=== PATIENT | male | born 1955 | race Caucasian/White ===

== ENCOUNTER → 2017-01-31 | Outpatient (CLI) | payer OTHER ==
[~2017-01-31] MED LIST: ATEN-173 PO; CHOL100010 PO; FEXO1TAB49 PO; FLUT0.15; HYDR25TA4 PO; LISI-729 PO; LOSA1TAB38 PO; NAPR1TAB9 PO; SNG10 PO; TAMS0.4C38 PO
[2017-01-31 17:13] LABS: BASO % 0.4 %; BASO ABS # 0.06 K/uL (0-0.2); COMPLETE YES; EOS % 2.7 %; HEMATOCRIT 29.3 % (42-52); IG% 0.7 %; LYMPH % 26.4 %; LYMPH ABS # 3.57 K/uL (1.2-3.4); MEAN CELL VOLUME 86.7 fL (80-100); MEAN CORPUSCULAR HEMOGLOBIN 28.4 pg (25-34); MEAN CORPUSCULAR HGB CONC 32.8 g/dl (32-36); MEAN PLATELET VOLUME 11.9 fL (7.4-10.4); MONO % 15.2 %; NEUT % 54.6 %; PLATELET COUNT 267 K/uL (130-400); RED BLOOD COUNT 3.38 M/uL (4.7-6.1)
[2017-01-31 17:45] LABS: BLOOD UREA NITROGEN 15 mg/dl (7-18); BUN/CREATININE RATIO 17.8 (10-20); C-REACTIVE PROTEIN 1.07 mg/dl (0-0.29); CALCIUM 8.5 mg/dl (8.5-10.1); CARBON DIOXIDE 26 mmol/L (21-32); CHLORIDE 108 mmol/L (98-107); CREATININE 0.85 mg/dl (0.60-1.40); GLUCOSE 100 mg/dl (70-99); POTASSIUM 4.1 mmol/L (3.5-5.1); SODIUM 141 mmol/L (136-145)
--- NOTE | 2017-03-03 12:27 | CODING QUERY NO DIAGNOSIS ---
Valid Physician Order Needed A valid physician order must be submitted in order to properly bill for the service(s) provided, including date of service(s), valid diagnosis, and physician signature. If these tests are done on a recurring basis the original physican order must be submitted in order to code and bill for the service(s) provided. Please fax us the original, signed physician order so that we may expedite billing to [phone] DOS 01/31/17 * C-REACTIVE PROTEIN, BASIC METABOLIC PROILE, CBC, PLATELET COUNT, SED RATE. (there is no valid signature on the order - the provider is listed as Noemi SELBY. Please provide contact information for this provider if you have as well if available) Thank you Julissa Doyle [facility] Information Management
== END | disposition home or self-care (01) ==
LOC: C.LABSPEC 16:48
PROVIDERS: ATTEND Nurse Practitioner
DX: M86.9 Osteomyelitis, unspecified (principal); S82.8 Other fractures of lower leg; X58.XXXD Exposure to other specified factors, subsequent encounter; Z79.2 Long term (current) use of antibiotics; I10 Essential (primary) hypertension; A69.20 Lyme disease, unspecified; E66.9 Obesity, unspecified; Z48.89 Encounter for other specified surgical aftercare; Z45.2 Encounter for adjustment and management of vascular access device

== ENCOUNTER → 2017-02-07 | Outpatient (CLI) | payer OTHER ==
[2017-02-07 19:27] LABS: HEMATOCRIT 32.2 % (42-52); MEAN CORPUSCULAR HEMOGLOBIN 27.4 pg (25-34); MEAN CORPUSCULAR HGB CONC 32.3 g/dl (32-36); MEAN PLATELET VOLUME 12.3 fL (7.4-10.4); PLATELET COUNT 275 K/uL (130-400); RED BLOOD COUNT 3.79 M/uL (4.7-6.1); WHITE BLOOD COUNT 9.92 K/uL (4.8-10.8)
[2017-02-07 19:34] LABS: BLOOD UREA NITROGEN 18 mg/dl (7-18); BUN/CREATININE RATIO 21.7 (10-20); C-REACTIVE PROTEIN 0.53 mg/dl (0-0.29); CALCIUM 8.8 mg/dl (8.5-10.1); CARBON DIOXIDE 25 mmol/L (21-32); CHLORIDE 107 mmol/L (98-107); CREATININE 0.83 mg/dl (0.60-1.40); GLUCOSE 104 mg/dl (70-99); POTASSIUM 3.9 mmol/L (3.5-5.1); SODIUM 139 mmol/L (136-145)
[2017-02-07 20:36] LABS: BASO ABS # 0.18 K/uL (0-0.2); BASOPHIL % 1.8 % (0-2); COMPLETE YES; EOSINOPHIL % 1.8 %; LYMPH ABS # 1.49 K/uL (1.2-3.4); NEUTROPHILS % 64.6 %; VARIANT LYM ABS # 1.14 K/uL; VARIANT LYMPHOCYTE % 11.5 %
--- NOTE | 2017-02-09 10:46 | CODING QUERY NO DIAGNOSIS ---
Valid Physician Order Needed A valid physician order must be submitted in order to properly bill for the service(s) provided, including date of service(s), valid diagnosis, and physician signature. If these tests are done on a recurring basis the original physican order must be submitted in order to code and bill for the service(s) provided. Please fax us the original, signed physician order so that we may expedite billing to [phone] DOS 02/07/17 * CRP, PRP, CBC, ESR ORDERED BY HASEEB FISH PA-C Thank you Alexus [facility] Information Management
== END | disposition home or self-care (01) ==
LOC: C.LABSPEC 16:56
PROVIDERS: ATTEND Orthopaedic Surgery
DX: M86.9 Osteomyelitis, unspecified (principal)

== ENCOUNTER → 2017-02-14 | Outpatient (CLI) | payer OTHER ==
[2017-02-14 16:49] LABS: BASO % 0.3 %; BASO ABS # 0.03 K/uL (0-0.2); COMPLETE YES; IG% 0.2 %; LYMPH % 29.6 %; MEAN CELL VOLUME 85.4 fL (80-100); MEAN CORPUSCULAR HEMOGLOBIN 26.6 pg (25-34); MEAN CORPUSCULAR HGB CONC 31.1 g/dl (32-36); MEAN PLATELET VOLUME 12.3 fL (7.4-10.4); MONO % 11.4 %; NEUT % 53.5 %; PLATELET COUNT 228 K/uL (130-400); WHITE BLOOD COUNT 9.11 K/uL (4.8-10.8)
[2017-02-14 16:59] LABS: BLOOD UREA NITROGEN 19 mg/dl (7-18); BUN/CREATININE RATIO 17.4 (10-20); C-REACTIVE PROTEIN 0.34 mg/dl (0-0.29); CALCIUM 8.8 mg/dl (8.5-10.1); CARBON DIOXIDE 28 mmol/L (21-32); CHLORIDE 104 mmol/L (98-107); GLUCOSE 101 mg/dl (70-99); POTASSIUM 3.9 mmol/L (3.5-5.1); SODIUM 139 mmol/L (136-145)
--- NOTE | 2017-02-17 05:59 | CODING QUERY NO DIAGNOSIS ---
Valid Physician Order Needed A valid physician order must be submitted in order to properly bill for the service(s) provided, including date of service(s), valid diagnosis, and physician signature. If these tests are done on a recurring basis the original physician order must be submitted in order to code and bill for the service(s) provided. Please fax us the original, signed physician order so that we may expedite billing to [phone] DOS 02/14 * CRP, PRP, CBC, ESR Thank you [facility] Information Management
== END | disposition home or self-care (01) ==
LOC: C.LABSPEC 16:30
PROVIDERS: ATTEND Physician Assistant Medical
DX: M86.9 Osteomyelitis, unspecified (principal); Z51.81 Encounter for therapeutic drug level monitoring; Z79.2 Long term (current) use of antibiotics; I10 Essential (primary) hypertension; A69.20 Lyme disease, unspecified; S82.8 Other fractures of lower leg; X58.XXXD Exposure to other specified factors, subsequent encounter

== ENCOUNTER → 2017-02-21 | Outpatient (CLI) | payer OTHER ==
[2017-02-21 18:07] LABS: BASO % 0.3 %; BASO ABS # 0.03 K/uL (0-0.2); COMPLETE YES; EOS % 3.7 %; HEMATOCRIT 28.7 % (42-52); IG% 0.3 %; LYMPH ABS # 1.82 K/uL (1.2-3.4); MEAN CELL VOLUME 84.7 fL (80-100); MEAN CORPUSCULAR HEMOGLOBIN 27.4 pg (25-34); MEAN CORPUSCULAR HGB CONC 32.4 g/dl (32-36); MEAN PLATELET VOLUME 12.3 fL (7.4-10.4); MONO % 11.6 %; NEUT % 64.1 %; PLATELET COUNT 212 K/uL (130-400); RED BLOOD COUNT 3.39 M/uL (4.7-6.1); WHITE BLOOD COUNT 9.12 K/uL (4.8-10.8)
[2017-02-21 18:14] LABS: BLOOD UREA NITROGEN 22 mg/dl (7-18); BUN/CREATININE RATIO 23.1 (10-20); C-REACTIVE PROTEIN 6.51 mg/dl (0-0.29); CALCIUM 8.8 mg/dl (8.5-10.1); CARBON DIOXIDE 28 mmol/L (21-32); CHLORIDE 106 mmol/L (98-107); CREATININE 0.97 mg/dl (0.60-1.40); GLUCOSE 127 mg/dl (70-99); POTASSIUM 3.9 mmol/L (3.5-5.1); SODIUM 141 mmol/L (136-145)
--- NOTE | 2017-02-22 14:02 | CODING QUERY NO DIAGNOSIS ---
Valid Physician Order Needed A valid physician order must be submitted in order to properly bill for the service(s) provided, including date of service(s), valid diagnosis, and physician signature. If these tests are done on a recurring basis the original physican order must be submitted in order to code and bill for the service(s) provided. Please fax us the original, signed physician order so that we may expedite billing to [phone] DOS 02/21/17 * CRP, PRP, CBC, ESR ORDERED BY SOLA EDWARD Thank you Alexus [facility] Information Management
== END | disposition home or self-care (01) ==
LOC: C.LABSPEC 16:40
PROVIDERS: ATTEND Nurse Practitioner
DX: M86.9 Osteomyelitis, unspecified (principal)

== ENCOUNTER → 2017-02-24 | Outpatient (CLI) | payer OTHER | END | disposition home or self-care (01) | LOC: C.LABSPEC 17:25 | PROVIDERS: ATTEND Internal Medicine Infectious Disease | DX: M86.9 Osteomyelitis, unspecified (principal) ==

== ENCOUNTER → 2017-02-28 | Outpatient (CLI) | payer OTHER ==
[2017-02-28 17:10] LABS: HEMATOCRIT 30.5 % (42-52); MEAN CELL VOLUME 82.7 fL (80-100); MEAN CORPUSCULAR HGB CONC 31.5 g/dl (32-36); MEAN PLATELET VOLUME 11.8 fL (7.4-10.4); PLATELET COUNT 311 K/uL (130-400); RED BLOOD COUNT 3.69 M/uL (4.7-6.1); WHITE BLOOD COUNT 13.32 K/uL (4.8-10.8)
[2017-02-28 17:41] LABS: BLOOD UREA NITROGEN 24 mg/dl (7-18); BUN/CREATININE RATIO 23.8 (10-20); C-REACTIVE PROTEIN 0.47 mg/dl (0-0.29); CALCIUM 8.7 mg/dl (8.5-10.1); CARBON DIOXIDE 27 mmol/L (21-32); CHLORIDE 106 mmol/L (98-107); GLUCOSE 88 mg/dl (70-99); POTASSIUM 3.7 mmol/L (3.5-5.1); SODIUM 140 mmol/L (136-145)
[2017-02-28 19:01] LABS: BASO % 0.2 %; BASO ABS # 0.03 K/uL (0-0.2); COMPLETE YES; ECHINOCYTES 1+; EOS % 2.4 %; IG% 0.5 %; LYMPH % 22.9 %; LYMPH ABS # 3.05 K/uL (1.2-3.4); MONO % 15.3 %; NEUT % 58.7 %; SMUDGE CELLS PRESENT
--- NOTE | 2017-03-01 11:17 | CODING QUERY NO DIAGNOSIS ---
Valid Physician Order Needed A valid physician order must be submitted in order to properly bill for the service(s) provided, including date of service(s), valid diagnosis, and physician signature. If these tests are done on a recurring basis the original physican order must be submitted in order to code and bill for the service(s) provided. Please fax us the original, signed physician order so that we may expedite billing to [phone] DOS 02/28/17 * C-REACTIVE PROTEIN * PARTIAL RENAL PROFILE * CBC W/ AUTO DIFF * ERYTHROCYTE SEDIMENTATION RATE Thank you Oneida [facility] Information Management
== END | disposition home or self-care (01) ==
LOC: C.LABSPEC 16:50
PROVIDERS: ATTEND Orthopaedic Surgery
DX: M86.9 Osteomyelitis, unspecified (principal)

== ENCOUNTER 2017-08-20 06:54 | Emergency (ER) | payer OTHER ==
[~2017-08-20] VITALS: Ht 167.6 cm; Wt 112.9 kg
[~2017-08-20 06:54] MED LIST changes: -ATEN-173 PO; -HYDR25TA4 PO; -LOSA1TAB38 PO; -TAMS0.4C38 PO
[2017-08-20 06:58] VITALS: TEMP 36.6; Ht 167.6 cm; Wt 112.9 kg
--- NOTE | 2017-08-20 07:04 | EMERGENCY ROOM VISIT NOTE ---
ED Visit Note First contact with patient: 07:01 Resident Physician Supervision Note: I was present with Dr. Galvez during the history and exam. I discussed the case with the resident and agree with the findings and plan as documented in the note. Documented By: Alan Clemens Problem List Medical Problems: (1) Asthma Status: Chronic (2) Bronchitis Status: Resolved (3) Pneumonia Status: Resolved Surgical Problems: (1) History of back surgery Status: Resolved Current/Historical Medications Scheduled Cholecalciferol (Vitamin D), 2,000 INTER.UNIT PO DAILY Fexofenadine Hcl (Sirisah Allergy), 1 TAB PO DAILY Fluticasone Propionate (Nasal) (Flonase Allergy Relief), SPRAYS NA DAILY Lisinopril (Zestril), 20 MG PO DAILY Montelukast (Singulair *), 10 MG PO DAILY Naproxen (Aleve), 220 MG PO DAILY Allergies Coded Allergies: Dust (Verified Allergy, Mild, rhinitis, 06/01/16) Molds & Smuts (Verified Allergy, Mild, rhinitis, 06/01/16) POLLEN (Verified Allergy, Mild, rhinitis, 06/01/16) Morphine (Unverified Adverse Reaction, Mild, "It doesn't work for me"., 11/05) Vital Signs Date Time Temp Pulse Resp B/P (MAP) Pulse Ox O2 Delivery O2 Flow Rate FiO2 08/20/17 06:58 36.6 103 17 172/91 95 Room Air Departure Information Referrals No Doctor, Assigned (PCP) Patient Instructions My [facility]
--- NOTE | 2017-08-20 07:07 | EMERGENCY ROOM VISIT NOTE ---
History First contact with patient: 07:12 Chief Complaint: ABDOMINAL PAIN Stated Complaint: SEVERE STOMACH PAINS- KIDNEY STONE? History of Present Illness The patient is a 62 year old male who presents to the Emergency Room with complaints of left flank pain which woke him out of sleep at approx 0230. The patient states that he was suddenly awakened from 6/10 sharp left flank pain. It did not radiate and no aggravating/ alleviating factors. He notes acid reflux was associated with this pain as well as nausea so he took Tums. The acid reflux resolved however the flank pain started to radiate into the lower abdomen and patient was concerned for a kidney stone as he has a history of them and decided to come to the ED for evaluation. He currently denies any chest pain, sob, hematuria, dysuria, change in bowel habits. He notes his nausea is ongoing. Review of Systems A 10 point review of systems was completed and was negative aside from above Past Medical/Surgical History Medical Problems: (1) Asthma (2) Bronchitis (3) Facial droop (4) Pneumonia (5) Tibia/fibula fracture Surgical Problems: (1) History of back surgery Family History FH: gallbladder disease FH: kidney disease Social History Smoking Status: Never Smoker Smokeless Tobacco Use: No Alcohol Use: occasionally Drug Use: none Marital Status: Housing Status: lives with significant other Occupation Status: employed Current/Historical Medications Scheduled Atenolol (Tenormin), 25 MG PO DAILY Cholecalciferol (Vitamin D), 2,000 INTER.UNIT PO DAILY Fluticasone Propionate (Nasal) (Flonase Allergy Relief), SPRAYS NA DAILY Hydrochlorothiazide (Hctz), 25 MG PO DAILY Losartan Potassium (Cozaar), 100 MG PO DAILY Tamsulosin Hcl (Flomax), 1 CAP PO HS Allergies Coded Allergies: Dust (Verified Allergy, Mild, rhinitis, 08/20/17) Molds & Smuts (Verified Allergy, Mild, rhinitis, 08/20/17) POLLEN (Verified Allergy, Mild, rhinitis, 08/20/17) Morphine (Unverified Adverse Reaction, Mild, "It doesn't work for me"., ) Physical Exam Vital Signs Date Time Temp Pulse Resp B/P (MAP) Pulse Ox O2 Delivery O2 Flow Rate FiO2 08/20/17 09:45 84 17 135/64 95 Room Air 08/20/17 07:45 99 17 171/93 94 Room Air 08/20/17 06:58 36.6 103 17 172/91 95 Room Air Physical Exam General: ambulatory, not in acute distress Skin: no rashes noted, no suspicious lesions, no areas of inflammations/ lacerations/ erythema noted CVS: S1/ S2 noted, RRR, no rubs/ murmurs noted, no cyanosis RVS: Clear throughout bilaterally, not in acute respiratory distress, no wheezing/ rales/ crackles noted ENT: no erythema/ injection/ ulcerations noted in the pharynx, no lymphadenopathy Neck: inspection WNL, full ROM of neck ABD: BSx4, no pain/ tenderness on palpation, no organomegaly, negative murphys, psoas, Rovsing, left CVA tenderness MSK: inspection of all limbs WNL except for a llizarov apparatus on the right LE , sensation intact in all limbs, no swelling/ pain on palpation of joints Lymph: No lymphadenopathy palpable Medical Decision & Procedures ER Provider Diagnostic Interpretation: ABD/PELVIS WITHOUT FOR STONE CLINICAL HISTORY: 62 years-old Male presenting with left flank pain, h/o kidney stone. TECHNIQUE: Multidetector CT of the abdomen and pelvis was performed without the use of intravenous contrast. IV contrast: None. A dose lowering technique was used consistent with the principles of ALARA (as low as reasonably achievable). COMPARISON: 09/29/2011. CT DOSE (mGy.cm): The estimated cumulative dose is 1793.21 mGy.cm. FINDINGS: [employer] topogram: Posterior lumbar fusion hardware. Lung bases: Minimal dependent changes likely atelectasis. Normal heart size. No pericardial or pleural effusion. Liver: Normal morphology. Density consistent with hepatic steatosis. Biliary: No gross biliary ductal dilatation allowing for noncontrast technique. Normal gallbladder. Pancreas: Moderate parenchymal atrophy. Spleen: Normal noncontrast appearance. Adrenal glands: Normal noncontrast appearance. Kidneys and ureters: Left perinephric fat stranding more than on the right. Mild left pelvocaliectasis. Nonobstructing 4 mm calculus at the lower pole of the left kidney. Punctate nonobstructing calculus at the upper pole of the left kidney (series 2 image 62). Additional probable punctate calculus in the interpolar region of the left kidney no right renal calculi. Obstructing 2 mm calculus at the left ureterovesical junction. The left ureter is mildly dilated. This is not in the midline, suggestive of retention within the ureter rather than a bladder calculus. Right ureter normal. Bladder: Incompletely evaluated secondary to underdistention. Pelvic organs: Prostate and seminal vesicles normal. Bowel: Diverticulosis of the descending and sigmoid colon. Normal appendix. No bowel obstruction. Peritoneal cavity: No free fluid or intraperitoneal gas. Vasculature: Atherosclerosis of the normal caliber abdominal aorta. Lymph nodes: No gross lymphadenopathy allowing for noncontrast technique. Few prominent bilateral inguinal lymph nodes, right greater than left, possibly reactive. Abdominal wall: Small fat-containing umbilical hernia. Postsurgical changes of vasectomy suspected. Musculoskeletal: Posterior lumbar fusion of L4-5 with associated laminectomy defects. Degenerative changes of the spine. IMPRESSION: 1. Obstructing 2 mm calculus in the left uterovesical junction. Additional nonobstructing left renal calculi. Mild left hydroureteronephrosis. 2. Prominent bilateral inguinal lymph nodes, right greater than left, which are not pathologically enlarged and likely reactive. CHEST ONE VIEW PORTABLE CLINICAL HISTORY: 62 years-old Male presenting with chest pain. TECHNIQUE: Portable upright AP view of the chest was obtained. COMPARISON: 06/01/2016. FINDINGS: Cardiomediastinal silhouette normal. Lungs and pleural spaces clear. Osseous structures normal. Upper abdomen normal. IMPRESSION: 1. No acute cardiopulmonary disease. Laboratory Results 08/20/17 07:25 Red Blood Count 5.29, Mean Corpuscular Volume 78.1, Mean Corpuscular Hemoglobin 25.9, Mean Corpuscular Hemoglobin Concent 33.2, Mean Platelet Volume 12.1, Neutrophils (%) (Auto) 77.2, Lymphocytes (%) (Auto) 15.7, Monocytes (%) (Auto) 6.4, Eosinophils (%) (Auto) 0.1, Basophils (%) (Auto) 0.2, Neutrophils # (Auto) 12.93, Lymphocytes # (Auto) 2.63, Monocytes # (Auto) 1.08, Eosinophils # (Auto) 0.01, Basophils # (Auto) 0.03 08/20/17 07:25 Test 08/20/17 07:03 08/20/17 07:05 08/20/17 07:25 Creatine Kinase MB Ratio (0-3.0) Urine Color YELLOW Urine Appearance CLEAR (CLEAR) Urine pH 5.0 (4.5-7.5) Urine Specific Wayne 1.034 (1.000-1.030) Urine Protein NEG (NEG) Urine Glucose (UA) NEG (NEG) Urine Ketones TRACE (NEG) Urine Occult Blood 2+ (NEG) Urine Nitrite NEG (NEG) Urine Bilirubin NEG (NEG) Urine Urobilinogen NEG (NEG) Urine Leukocyte Esterase NEG (NEG) Urine WBC (Auto) 1-5 /hpf (0-5) Urine RBC (Auto) 10-30 /hpf (0-4) Urine Hyaline Casts (Auto) 1-5 /lpf (0-5) Urine Epithelial Cells (Auto) 10-20 /lpf (0-5) Urine Bacteria (Auto) NEG (NEG) White Blood Count 16.75 K/uL (4.8-10.8) Red Blood Count 5.29 M/uL (4.7-6.1) Hemoglobin 13.7 g/dL (14.0-18.0) Hematocrit 41.3 % (42-52) Mean Corpuscular Volume 78.1 fL (80-100) Mean Corpuscular Hemoglobin 25.9 pg (25-34) Mean Corpuscular Hemoglobin Concent 33.2 g/dl (32-36) Platelet Count 237 K/uL (130-400) Mean Platelet Volume 12.1 fL (7.4-10.4) Neutrophils (%) (Auto) 77.2 % Lymphocytes (%) (Auto) 15.7 % Monocytes (%) (Auto) 6.4 % Eosinophils (%) (Auto) 0.1 % Basophils (%) (Auto) 0.2 % Neutrophils # (Auto) 12.93 K/uL (1.4-6.5) Lymphocytes # (Auto) 2.63 K/uL (1.2-3.4) Monocytes # (Auto) 1.08 K/uL (0.11-0.59) Eosinophils # (Auto) 0.01 K/uL (0-0.5) Basophils # (Auto) 0.03 K/uL (0-0.2) RDW Standard Deviation 49.5 fL (36.4-46.3) RDW Coefficient of Variation 17.3 % (11.5-14.5) Immature Granulocyte % (Auto) 0.4 % Immature Granulocyte # (Auto) 0.07 K/uL (0.00-0.02) Anion Gap 9.0 mmol/L (3-11) Est Creatinine Clear Calc Drug Dose 61.8 ml/min Estimated GFR () 57.8 Estimated GFR (Non- 49.9 BUN/Creatinine Ratio 15.9 (10-20) Calcium Level 10.0 mg/dl (8.5-10.1) Total Bilirubin 0.4 mg/dl (0.2-1) Aspartate Amino Transf (AST/SGOT) 19 U/L (15-37) Alanine Aminotransferase (ALT/SGPT) 33 U/L (12-78) Alkaline Phosphatase 101 U/L (45-117) Creatine Kinase MB 2.5 ng/ml (0.5-3.6) Troponin I < 0.015 ng/ml (0-0.045) Total Protein 7.8 gm/dl (6.4-8.2) Albumin 3.6 gm/dl (3.4-5.0) Globulin 4.2 gm/dl (2.5-4.0) Albumin/Globulin Ratio 0.9 (0.9-2) Lipase 73 U/L (73-393) Medications Administered Medications (Trade) Dose Ordered Sig/Jenn Route Start Time Stop Time Status Last Admin Dose Admin Hydromorphone HCl (Dilaudid Inj) 1 mg NOW STAT IV 08/20/17 07:31 08/20/17 07:32 DC 08/20/17 07:43 1 MG Ketorolac Tromethamine (Toradol Inj) 30 mg NOW STAT IV 08/20/17 07:31 08/20/17 07:32 DC 08/20/17 07:43 30 MG Ondansetron HCl (Zofran Inj) 4 mg NOW STAT IV 08/20/17 07:31 08/20/17 07:32 DC 08/20/17 07:42 4 MG Sodium Chloride 1,000 ml @ 999 mls/hr Q1H1M STAT IV 08/20/17 07:31 08/20/17 08:31 DC 08/20/17 07:42 999 MLS/HR Ceftriaxone Sodium (Rocephin Inj) 1 gm NOW STAT IV 08/20/17 08:07 08/20/17 08:08 DC 08/20/17 08:33 1 GM Tamsulosin HCl (Flomax Cap) 0.4 mg NOW ONCE PO 08/20/17 09:30 08/20/17 09:31 DC 08/20/17 09:56 0.4 MG ECG Indication: chest pain Rate (beats per minute): 100 Rhythm: normal sinus Findings: no acute ischemic change, no ectopy Change: no significant change ED Course 0715: patient was seen and evaluated by resident, work up was ordered 0740: Zofran 4 mg IV, toradol 30 mg IV, hydromorphone 1 mg IV, NSS 1 L @ 999/h 0800: Rocephin 1 mg IV 0845: Patient was reassessed and symptoms have improved with intervention, updated on results 0930: Discussed discharge with patient, patient agreeable Tamsulosin 0.4 mg now Medical Decision Differential diagnosis: Etiologies such as appendicitis, diverticulitis, nephrolithiasis, biliary pathology, UTI, pancreatitis, obstruction, mesenteric ischemia, aortic pathology , infections, inflammatory bowel disease, renal colic, as well as others were entertained. This is a 62 yo m with a history of nephrolithiasis presenting with left flank pain. His CBC revealed a BL anemia and a leukocytosis so the patient was started on Rocephin. He did have a recent lab test in mid june which revealed an elevated WBC as well and may be secondary to the llizarov frame. As patient was hemodynamically stable and UA was WNL aside from occult blood the patient was not continued on abx. The patient's CMP was unremarkable aside from JUAN which was most likely from the patient's nephrolithiasis causing hydronephrosis. Patient did receive a bolus of NSS. Ct revealed a 2 mm obstructing stone. As the size of the stone is 2 mm the patient was started on flomax with close follow up with urology. UA was unremarkable so antibiotics were not continued. We discussed discharge to the patient and he was agreeable. Impression Primary Impression: Nephrolithiasis Additional Impression: JUAN (acute kidney injury) Departure Information Dispostion Home / Self-Care Condition GOOD Prescriptions Tamsulosin Hcl (FLOMAX) 0.4 Mg Cap 1 CAP PO HS for 30 Days, #30 CAP 5 Refills Prov: Tamika Galvez MD 08/20/17 Referrals No Doctor, Assigned (PCP) Patient Instructions My [facility] Problem Qualifiers
[2017-08-20 07:20] LABS: URINE APPEARANCE CLEAR (CLEAR); URINE BILIRUBIN NEG (NEG); URINE COLOR YELLOW; URINE NITRITE NEG (NEG); URINE SPECIFIC GRAVITY 1.034 (1.000-1.030); UROBILINOGEN NEG (NEG); ZZUR CULT IF INDIC CLEAN CATCH NO
[2017-08-20 07:25] LABS: MANUAL MICROSCOPIC REQUIRED? NO; REVIEW REQ? NO
[2017-08-20] MEDS ORDERED: ONDANSETRON INJ 2 MG/ML 2 ML VIAL IV STA ×2 (07:31→07:40)
[2017-08-20] MEDS ORDERED: KETOROLAC TROMETHAMINE 30 MG/ML VIAL IV STA ×2 (07:31→07:40)
[2017-08-20] MEDS ORDERED: SODIUM CHLORIDE 0.9% 1000ML 1,000 ML IV STA (07:31)
[2017-08-20] MEDS ORDERED: HYDROmorphone INJ 1 MG/ML SYR IV STA (07:31)
[2017-08-20] MEDS ORDERED: HYDR25TA4 PO (07:40)
[2017-08-20] MEDS ORDERED: LOSA1TAB38 PO (07:40)
[2017-08-20] MEDS ORDERED: ATEN-173 PO (07:40)
[2017-08-20 07:44] LABS: BASO % 0.2 %; BASO ABS # 0.03 K/uL (0-0.2); COMPLETE YES; EOS % 0.1 %; HEMATOCRIT 41.3 % (42-52); IG% 0.4 %; LYMPH % 15.7 %; LYMPH ABS # 2.63 K/uL (1.2-3.4); MEAN CELL VOLUME 78.1 fL (80-100); MEAN CORPUSCULAR HEMOGLOBIN 25.9 pg (25-34); MEAN CORPUSCULAR HGB CONC 33.2 g/dl (32-36); MEAN PLATELET VOLUME 12.1 fL (7.4-10.4); MONO % 6.4 %; NEUT % 77.2 %; PLATELET COUNT 237 K/uL (130-400); RED BLOOD COUNT 5.29 M/uL (4.7-6.1); WHITE BLOOD COUNT 16.75 K/uL (4.8-10.8)
[2017-08-20 07:56] LABS: ALT/SGPT 33 U/L (12-78); BLOOD UREA NITROGEN 24 mg/dl (7-18); BUN/CREATININE RATIO 15.9 (10-20); CARBON DIOXIDE 24 mmol/L (21-32); CHLORIDE 107 mmol/L (98-107); GLUCOSE 145 mg/dl (70-99); SODIUM 140 mmol/L (136-145)
[2017-08-20 08:01] LABS: ALB/GLOB RATIO 0.9 (0.9-2); ALKALINE PHOSPHATASE 101 U/L (45-117); AST/SGOT 19 U/L (15-37)
[2017-08-20] MEDS ORDERED: CEFTRIAXONE SOD INJ 1 GM ADDVIAL IV STA (08:07)
--- NOTE | 2017-08-20 09:03 | DIAGNOSTIC IMAGING REPORT ---
CHEST ONE VIEW PORTABLE CLINICAL HISTORY: 62 years-old Male presenting with chest pain. TECHNIQUE: Portable upright AP view of the chest was obtained. COMPARISON: 06/01/2016. FINDINGS: Cardiomediastinal silhouette normal. Lungs and pleural spaces clear. Osseous structures normal. Upper abdomen normal. IMPRESSION: 1. No acute cardiopulmonary disease. Electronically signed by: Mike Kennedy M.D. 08/20/2017 9:02 AM Dictated Date/Time: 08/20/2017 9:01 AM
--- NOTE | 2017-08-20 09:16 | DIAGNOSTIC IMAGING REPORT ---
ABD/PELVIS WITHOUT FOR STONE CLINICAL HISTORY: 62 years-old Male presenting with left flank pain, h/o kidney stone. TECHNIQUE: Multidetector CT of the abdomen and pelvis was performed without the use of intravenous contrast. IV contrast: None. A dose lowering technique was used consistent with the principles of ALARA (as low as reasonably achievable). COMPARISON: 09/29/2011. CT DOSE (mGy.cm): The estimated cumulative dose is 1793.21 mGy.cm. FINDINGS: [employer] topogram: Posterior lumbar fusion hardware. Lung bases: Minimal dependent changes likely atelectasis. Normal heart size. No pericardial or pleural effusion. Liver: Normal morphology. Density consistent with hepatic steatosis. Biliary: No gross biliary ductal dilatation allowing for noncontrast technique. Normal gallbladder. Pancreas: Moderate parenchymal atrophy. Spleen: Normal noncontrast appearance. Adrenal glands: Normal noncontrast appearance. Kidneys and ureters: Left perinephric fat stranding more than on the right. Mild left pelvocaliectasis. Nonobstructing 4 mm calculus at the lower pole of the left kidney. Punctate nonobstructing calculus at the upper pole of the left kidney (series 2 image 62). Additional probable punctate calculus in the interpolar region of the left kidney no right renal calculi. Obstructing 2 mm calculus at the left ureterovesical junction. The left ureter is mildly dilated. This is not in the midline, suggestive of retention within the ureter rather than a bladder calculus. Right ureter normal. Bladder: Incompletely evaluated secondary to underdistention. Pelvic organs: Prostate and seminal vesicles normal. Bowel: Diverticulosis of the descending and sigmoid colon. Normal appendix. No bowel obstruction. Peritoneal cavity: No free fluid or intraperitoneal gas. Vasculature: Atherosclerosis of the normal caliber abdominal aorta. Lymph nodes: No gross lymphadenopathy allowing for noncontrast technique. Few prominent bilateral inguinal lymph nodes, right greater than left, possibly reactive. Abdominal wall: Small fat-containing umbilical hernia. Postsurgical changes of vasectomy suspected. Musculoskeletal: Posterior lumbar fusion of L4-5 with associated laminectomy defects. Degenerative changes of the spine. IMPRESSION: 1. Obstructing 2 mm calculus in the left uterovesical junction. Additional nonobstructing left renal calculi. Mild left hydroureteronephrosis. 2. Prominent bilateral inguinal lymph nodes, right greater than left, which are not pathologically enlarged and likely reactive. Electronically signed by: Mike Kennedy M.D. 08/20/2017 9:15 AM Dictated Date/Time: 08/20/2017 9:09 AM
[2017-08-20] MEDS ORDERED: TAMSULOSIN HCL 0.4 MG CAP PO ONE (09:30)
[2017-08-20 09:45] VITALS: BP 135/64; PULSE 84; O2SAT 95
[2017-08-20] MEDS ORDERED: TAMS0.4C38 PO (09:45)
== END 2017-08-20 10:10 | disposition home or self-care (01) ==
LOC: C.EDB 06:55 → C.EDA 10:10
DX: N20.0 Calculus of kidney (principal); N17.9 Acute kidney failure, unspecified; J45.909 Unspecified asthma, uncomplicated; Z87.01 Personal history of pneumonia (recurrent); Z87.442 Personal history of urinary calculi; Z83.79 Family history of other diseases of the digestive system; Z84.1 Family history of disorders of kidney and ureter; Z79.899 Other long term (current) drug therapy

== ENCOUNTER → 2018-04-11 | Day surgery (SDC) | payer OTHER ==
[2018-04-04 09:32] VITALS: Ht 167.6 cm; Wt 111.4 kg
[~2018-04-11] VITALS: Ht 167.6 cm; Wt 111.4 kg
[~2018-04-11] MED LIST changes: +ALBU18002 INH; +ATEN-173 PO; +ATOR-54 PO; -CHOL100010 PO; +CHOL1TAB42 PO; +FAMO20TA11 PO; +FLUT50SP45 NAE; +FLVHFA110 INH; +HYDR25TA4 PO; +LIDOCAINE HCL 2% 2 ML VIAL (20MG/ML) ONE; -LISI-729 PO; +LOSA1TAB38 PO; +MONT1TAB3 PO; -NAPR1TAB9 PO; +PROPOFOL IV EMULSION 10 MG/ML 20 ML VIAL ONE; -SNG10 PO; +SODIUM CHLORIDE 0.9% 500ML 500 ML IV ONE; +TAMS0.4C38 PO
--- NOTE | 2018-04-11 08:19 | Endo History and Physical ---
History & Physical Date of Service: April 11, 2018. Chief Complaint: Referring Physician: History of Present Illness 62 yo presenting for second colonoscopy with a family history in brother. No complaints. Past Medical History Asthma Past Surgical History Hx Cardiac Surgery: No Hx Internal Defibrillator: No Hx Pacemaker: No Hx Abdominal Surgery: Yes (hernia repair) Hx of Implantable Prosthesis: No Hx Post-Op Nausea and Vomiting: No Hx Cancer Surgery: No Hx Thoracic Surgery: No Hx Orthopedic: Yes (back L 4 & 5 (2003), RIGHT ANKLE MAY 2016, LEFT KNEE SCOPE 2003) Hx Urinary Tract Surgery: No Family History Colon CA, IBD Social History Smoking Status: Never Smoker Hx Substance Use: No Hx Alcohol Use: Yes (1-2 drinks/week) Allergies Coded Allergies: Dust (Verified Allergy, Mild, rhinitis, 04/04/18) Molds & Smuts (Verified Allergy, Mild, rhinitis, 04/04/18) POLLEN (Verified Allergy, Mild, rhinitis, 04/04/18) Morphine (Unverified Adverse Reaction, Mild, "It doesn't work for me"., ) Current Medications Reported Home Medications Medications Dose Route/Sig Max Daily Dose Days Date Category Flovent Hfa (Fluticasone Propionate) 120 Puffs/85650 Mcg Aero 2 Puffs INH BID PRN 30 04/04/18 Reported Allergy Nasal Cameron 24 Ho (Fluticasone Propionate (Nasal)) 50 Mcg/Act Spr 1 Cameron JENNIFER DAILY 04/04/18 Reported Pepcid (Famotidine) 20 Mg Tab 20 Mg PO DAILY PRN 04/04/18 Reported Lipitor (Atorvastatin) 20 Mg Tab 1 Tab PO QAM 90 04/04/18 Reported Singulair (Montelukast Sodium) 10 Mg Tab 1 Tab PO DAILY 90 04/04/18 Reported Sirisha Allergy (Fexofenadine Hcl) 180 Mg Tab 1 Tab PO DAILY 30 04/04/18 Reported Proair Respiclick (Albuterol Sulfate) 108 Mcg/Act Aer 2 Puffs INH Q6 PRN 04/04/18 Reported Vitamin D (Cholecalciferol) 5,000 Unit Tab 1 Tab PO DAILY 04/04/18 Reported Flomax (Tamsulosin Hcl) 0.4 Mg Cap 1 Cap PO HS 30 08/20/17 Rx Tenormin (Atenolol) 25 Mg Tab 25 Mg PO DAILY 08/20/17 Reported Cozaar (Losartan Potassium) 100 Mg Tab 100 Mg PO DAILY 08/20/17 Reported Hctz (Hydrochlorothiazide) 25 Mg Tab 25 Mg PO DAILY 08/20/17 Reported Flonase Allergy Relief (Fluticasone Propionate (Nasal)) 50 Mcg/Act Spr Sprays NA DAILY 07/22/16 Reported Vital Signs Weight (Kilograms): 111.36 Height (Feet): 5 Height (Inches): 6 Date Time Temp Pulse Resp B/P (MAP) Pulse Ox O2 Delivery O2 Flow Rate FiO2 04/11/18 08:11 36.2 100 18 132/81 (98) 94 Room Air Physical Exam General Appearance: WD/WN, no apparent distress Respiratory/Chest: Respiratory effort: no dyspnea Auscultation: breath sounds normal Cardiovascular: Apical Impulse: not displaced Heart Auscultation: RRR, normal S1, normal S2, no murmurs Abdomen: Bowel Sounds: normal Inspection & Palpation: soft, non-distended, no tenderness, guarding & rebound Assessment and Plan 62 yo presenting for second colonoscopy with a family history in brother. Proceed with colonoscopy
--- NOTE | 2018-04-11 08:53 | Discharge Instructions ---
Endoscopy Patient Instructions Date / Procedure(s) Performed April 11, 2018. Colonoscopy Allergy Information Coded Allergies: Dust (Verified Allergy, Mild, rhinitis, 04/04/18) Molds & Smuts (Verified Allergy, Mild, rhinitis, 04/04/18) POLLEN (Verified Allergy, Mild, rhinitis, 04/04/18) Morphine (Unverified Adverse Reaction, Mild, "It doesn't work for me"., ) Discharge Date / Findings April 11, 2018. Diverticuli Internal Hemorrhoids Otherwise, normal exam Repeat in 5 years due to family history Provider Instructions Activity Restrictions - No exercising or heavy lifting for 24 hours. - Do not drink alcohol the day of the procedure. - Do not drive a car or operate machinery until the day after the procedure. - Do not make any important decisions or sign important papers in 24 hours after the procedure. Following Day: - Return to full activity which may include returning to work/school. Diet Start your diet with liquids and light foods (jello, soup, juice, toast). Then eat your usual diet if not nauseated. Treatment For Common After Affects For mild abdominal pain, bloating, or excessive gas: - Rest - Eat lightly - Lie on right side Follow-Up Information Follow-up with Cinthia Mesa as scheduled Anesthesia Information What You Should Know You have had a procedure that required some medicine to reduce anxiety and discomfort. This treatment is called moderate sedation. After receiving the treatment, you may be sleepy, but you will be able to breathe on your own. The effects of the treatment may last for several hours. Follow these instructions along with Activity/Diet recommendations noted above: * Do NOT do anything where dizziness or clumsiness would be dangerous. * Rest quietly at home today, then you can be up and about tomorrow. * Have a responsible person stay with you the rest of today. * You may have had an I.V. today. If so, you may take the dressing off later today. Recommendations Call your doctor if: * Trouble breathing * Continuous vomiting for more than 24 hours * Temperature above 101 degrees * Severe abdominal pain or bloating * Pain not relieved by pain medicine ordered * There is increased drainage or redness from any incision * A large amount of rectal bleeding greater than 2-3 tablespoons. (If you had a polyp/s removed or have hemorrhoids, a small amount of blood - from the rectum is to be expected.) * You have any unanswered questions or concerns. IN THE EVENT OF A SERIOUS EMERGENCY, GO TO THE NEAREST EMERGENCY ROOM Your discharge instructions were prepared by provider José Flowers. Patient Instructions Signature Page Tevin Michaels Patient (or Guardian) Signature/Date: I have read and understand the instructions given to me by my caregivers. Caregiver/RN/Doctor Signature/Date: The above-named patient and/or guardian has received patient instructions on this date. + Original Patient Signature Page (only) stays with chart. Please make copy for patient.
--- NOTE | 2018-04-11 08:53 | GI REPORT ---
Patient Name: Teivn Michaels Procedure Date: 04/11/2018 8:28 AM Date of : 1955 Admit Type: Outpatient Age: 62 Gender: Male Attending MD: José Flowers MD Procedure: Colonoscopy Providers: José Flowers MD Referring MD: Cinthia Mesa Indications: Screening in patient at increased risk: Family history of 1st-degree relative with colorectal cancer Medicines: Propofol per Anesthesia Complications: No immediate complications. Estimated blood loss: None. Estimated Blood Loss: Estimated blood loss: none. Procedure: Pre-Anesthesia Assessment: - Pre-Anesthesia Assessment: - Prior to the procedure, a History and Physical was performed, and patient medications, allergies and sensitivities were reviewed. The patient's tolerance of previous anesthesia was reviewed. Please see [facility] for complete details. - The risks and benefits of the procedure and the sedation options and risks were discussed with the patient. All questions were answered and informed consent was obtained. - Patient identification and proposed procedure were verified prior to the procedure by the physician and the nurse. The procedure was verified in the pre-procedure area in the procedure room. After obtaining informed consent, the endoscope was passed carefully and meticuously under direct vision and only advanced when the lumen was clearly identified, C02 insuflation was utilized throughout the entirity of the procedure. Throughout the procedure, the patient's blood pressure, pulse, and oxygen saturations were monitored continuously. After I obtained informed consent, the scope was passed under direct vision. Throughout the procedure, the patient's blood pressure, pulse, and oxygen saturations were monitored continuously. The scope was introduced through the anus and advanced to the terminal ileum, with identification of the appendiceal orifice and IC valve. The colonoscopy was performed without difficulty. The patient tolerated the procedure well. The quality of the bowel preparation was good. Findings: Multiple small-mouthed diverticula were found in the sigmoid colon. The terminal ileum appeared normal. Internal hemorrhoids were found during retroflexion. The exam was otherwise without abnormality on direct and retroflexion views. Impression: - Diverticulosis in the sigmoid colon. - The examined portion of the ileum was normal. - Internal hemorrhoids. - The examination was otherwise normal on direct and retroflexion views. - No specimens collected. Recommendation: - Written discharge instructions were provided to the patient. - Discharge patient to home (with escort). - Return to referring physician as previously scheduled. - Repeat colonoscopy in 5 years for surveillance. José Flowers MD 04/11/2018 8:52:45 AM This report has been signed electronically. Note Initiated On: 04/11/2018 8:28 AM Number of Addenda: 0 I attest to the content of the Intraoperative Record and orders documented therein, exceptions below {[id number]}
[2018-04-11 09:24] VITALS: BP 150/81; PULSE 83; O2SAT 94
--- NOTE | 2018-04-11 09:55 | Anesthesiology Progress Note ---
Anesthesia Post Op Note Date & Time April 11, 2018 at 09:55 Vital Signs Pain Intensity: 0 Vital Signs Past 12 Hours Date Time Temp Pulse Resp B/P (MAP) Pulse Ox O2 Delivery O2 Flow Rate FiO2 04/11/18 09:24 83 18 150/81 (104) 94 Room Air 04/11/18 09:09 91 18 140/84 (102) 94 Room Air 04/11/18 08:54 93 16 108/70 (83) 92 Room Air 04/11/18 08:11 36.2 100 18 132/81 (98) 94 Room Air Notes Mental Status: alert / awake / arousable, participated in evaluation Pt Amnestic to Procedure: Yes Nausea / Vomiting: adequately controlled Pain: adequately controlled Airway Patency, RR, SpO2: stable & adequate BP & HR: stable & adequate Hydration State: stable & adequate Anesthetic Complications: no major complications apparent
== END | disposition home or self-care (01) ==
LOC: C.GI 07:31
PROVIDERS: ATTEND Internal Medicine
DX: Z12.11 Encounter for screening for malignant neoplasm of colon (principal); K57.30 Diverticulosis of large intestine without perforation or abscess without bleeding; K64.8 Other hemorrhoids; J45.909 Unspecified asthma, uncomplicated; Z80.0 Family history of malignant neoplasm of digestive organs; Z88.5 Allergy status to narcotic agent; Z79.899 Other long term (current) drug therapy; G47.33 Obstructive sleep apnea (adult) (pediatric); Z99.89 Dependence on other enabling machines and devices; I10 Essential (primary) hypertension; E78.5 Hyperlipidemia, unspecified; K21.9 Gastro-esophageal reflux disease without esophagitis; Z87.442 Personal history of urinary calculi; E66.9 Obesity, unspecified